=== PATIENT | female | born 1960 ===

== ENCOUNTER 2017-07-03 13:57 | Inpatient (IN) | payer MEDICARE, OTHER ==
[~2017-07-03] VITALS: Ht 157.5 cm; Wt 86.6 kg
[~2017-07-03 13:57] MED LIST: ASPI-496 PO; ASPI325T17 PO; AZIT250T PO; CALC500T93 PO; CEFD300C37 PO; CYCL-259 PO; FOLI-17 PO; GABA300C10 PO; GLIM2TAB2 PO; LISI40TA PO; METF500T3 PO; METH2.5T PO; MULT-516 PO; OMEP20CA9 PO; OXYC5SOL8 PO; PRED20TA PO
[2017-07-03] MEDS ORDERED: PANTOPRAZOLE 80 MG in SODIUM CHLORIDE 0.9% 50 ML IVPB ONE (14:01)
[2017-07-03] MEDS ORDERED: OCTREOTIDE 100MCG/ML, 1ML (0.1MG/ML) ONE (14:20)
[2017-07-03] MEDS ORDERED: SODIUM CHLORIDE FLUSH 10ML SYR IVF ONE (14:30)
[2017-07-03] MEDS ORDERED: PLEASE ENTER HEIGHT AND WEIGHT MC SCH (14:30)
[2017-07-03] MEDS ORDERED: OCTREOTIDE 100MCG/ML, 1ML (0.1MG/ML) IV ONE (14:30)
[2017-07-03] MEDS ORDERED: SODIUM CHLORIDE 0.9% 1,000ML IVBOLUS ONE ×3 (14:30→18:30)
[2017-07-03] MEDS ORDERED: CEFTRIAXONE PMX 1GM/50ML 50 ML IVPB ONE (14:30)
[2017-07-03] MEDS ORDERED: CEFTRIAXONE PMX 1GM/50ML 50 ML ONE (14:31)
[2017-07-03] MEDS ORDERED: ONDANSETRON 2MG/ML, 2ML ONE (14:31)
[2017-07-03] MEDS: OCTREOTIDE 500 MCG in SODIUM CHLORIDE 0.9% 249 ML IV PRN ×4 (14:43→19:01)
[2017-07-03 14:58] LABS: MEAN CORPUSCULAR HEMOGLOBIN 25.5 pg (27.0-34.8); MEAN CORPUSCULAR HGB CONC 31.7 g/dL (32.4-35.8); MEAN CORPUSCULAR VOLUME 80.4 fL (80-100); MEAN PLATELET VOLUME 9.6 fL (7.4-10.4); PLATELET COUNT 236 x10^3/uL (130-400); RED BLOOD COUNT 4.13 x10^6/uL (3.82-5.3); RED CELL DISTRIBUTION WIDTH 22.6 % (9.6-15.2)
[2017-07-03] MEDS ORDERED: ONDANSETRON 2MG/ML, 2ML IVPush ONE (15:00)
[2017-07-03 15:07] LABS: ALANINE AMINOTRANSFERASE 23 U/L (12-78); ALBUMIN 2.2 g/dL (3.4-5.0); ANION GAP 12 mmol/L (5-15); CALCIUM 7.7 mg/dL (8.5-10.1); CHLORIDE 115 mmol/L (98-107); CREATININE 0.69 mg/dL (0.55-1.02)
[2017-07-03 15:10] LABS: ALKALINE PHOSPHATASE 194 U/L (45-117); TOTAL PROTEIN 7.8 g/dL (6.4-8.2)
[2017-07-03] MEDS: PANTOPRAZOLE 80 MG in SODIUM CHLORIDE 0.9% 100 ML IV SCH ×5 (15:12→22:28)
[2017-07-03 15:24] LABS: BASOPHILS # (AUTO) 0.06 x10^3/uL (0-0.1); BASOPHILS % (AUTO) 1 % (0-1); EOSINOPHILS % (AUTO) 0 % (1-7); LYMPHOCYTES # (AUTO) 2.34 x10^3/uL (1-3.4); LYMPHOCYTES % (AUTO) 18 % (22-44); MONOCYTES # (AUTO) 0.97 x10^3/uL (0.2-0.8); MONOCYTES % (AUTO) 8 % (2-9); NEUTROPHILS # (AUTO) 9.38 x10^3/uL (1.8-6.8); NEUTROPHILS % (AUTO) 74 % (42-75)
[2017-07-03 15:25] LABS: MD MORPH REVIEW ONLY
[2017-07-03 15:26] LABS: INTERNATIONAL NORMALIZED RATIO 1.33 (0.93-1.1); PROTHROMBIN TIME 13.6 Seconds (9.6-11.5)
[2017-07-03 15:32] LABS: ANISOCYTOSIS 2+
[2017-07-03 15:33] LABS: MICROCYTOSIS 1+
[2017-07-03 15:34] LABS: POLYCHROMASIA 1+
[2017-07-03 15:35] LABS: <PLATELET ESTIMATE> ADEQUATE; <PLT MORPHOLOGY> NORMAL PLT MORPH
[2017-07-03 15:53] LABS: MICROSCOPIC NOT IND
[2017-07-03 15:58] LABS: CULTURE INDICATED? NO
[2017-07-03 16:08] LABS: ACETONE, SERUM Negative (Negative)
[2017-07-03] MEDS ORDERED: LORazepam 2 MG/ML, 1ML ONE (16:28)
[2017-07-03] MEDS ORDERED: LORazepam 2 MG/ML, 1ML IVPush ONE (16:30)
[2017-07-03] MEDS ORDERED: SODIUM CHLORIDE 0.9%, 500ML IVBOLUS ONE (16:30)
[2017-07-03 16:55] LABS: AMPHETAMINE SCREEN, URINE Negative (Negative); BARBITURATE SCREEN, URINE Negative (Negative); BENZODIAZEPINE SCREEN, URINE Negative (Negative); CANNABINOID SCREEN, URINE Positive (Negative); COCAINE SCREEN, URINE Negative (Negative); METHADONE SCREEN, URINE Negative (Negative); OPIATE SCREEN, URINE Negative (Negative)
[2017-07-03] MEDS ORDERED: ZIPRASIDONE 20 MG INJ IM ONE ×3 (17:23→18:30)
[2017-07-03] MEDS ORDERED: POLYETHYLENE GLYCOL 17 GM PACKET PO PRN (17:30)
[2017-07-03] MEDS ORDERED: ONDANSETRON 2MG/ML, 2ML IVPush PRN (17:30)
[2017-07-03] MEDS: SODIUM CHLORIDE 0.9% 1,000 ML IV SCH (19:19)
[2017-07-03 20:00] LABS: THYROID STIMULATING HORMONE 0.304 mIU/L (0.358-3.740)
[2017-07-03 20:39] VITALS: BP 188/86
[2017-07-03] MEDS ORDERED: LACTULOSE 20 GM/30 ML UDC PO SCH (21:00)
[2017-07-03] MEDS: HALOPERIDOL 5 MG/ML IV PRN (22:28)
[2017-07-04] MEDS: HALOPERIDOL 5 MG/ML IV PRN ×2 (00:46→04:10)
[2017-07-04] MEDS: OCTREOTIDE 500 MCG in SODIUM CHLORIDE 0.9% 249 ML IV SCH ×3 (00:46→23:21)
[2017-07-04 04:00] VITALS: BP 151/74
[2017-07-04 04:42] LABS: ALBUMIN 1.7 g/dL (3.4-5.0); ANION GAP 10 mmol/L (5-15); CALCIUM 6.9 mg/dL (8.5-10.1); CHLORIDE 123 mmol/L (98-107)
[2017-07-04 04:46] LABS: ALANINE AMINOTRANSFERASE 21 U/L (12-78); ALKALINE PHOSPHATASE 145 U/L (45-117); BILIRUBIN,TOTAL 0.9 mg/dL (0.2-1.0); CREATININE 0.45 mg/dL (0.55-1.02); TOTAL PROTEIN 5.9 g/dL (6.4-8.2)
[2017-07-04 04:49] LABS: MEAN CORPUSCULAR HEMOGLOBIN 26.1 pg (27.0-34.8); MEAN CORPUSCULAR HGB CONC 32.3 g/dL (32.4-35.8); MEAN CORPUSCULAR VOLUME 80.9 fL (80-100); MEAN PLATELET VOLUME 9.3 fL (7.4-10.4); PLATELET COUNT 154 x10^3/uL (130-400); RED BLOOD COUNT 2.88 x10^6/uL (3.82-5.3); RED CELL DISTRIBUTION WIDTH 22.6 % (9.6-15.2)
[2017-07-04] MEDS: SODIUM CHLORIDE 0.9% 1,000 ML IV SCH (05:02)
[2017-07-04 05:53] LABS: BASOPHILS # (AUTO) 0.05 x10^3/uL (0-0.1); BASOPHILS % (AUTO) 1 % (0-1); EOSINOPHILS # (AUTO) 0.02 x10^3/uL (0-0.4); EOSINOPHILS % (AUTO) 0 % (1-7); LYMPHOCYTES # (AUTO) 1.81 x10^3/uL (1-3.4); LYMPHOCYTES % (AUTO) 21 % (22-44); MD SCAN; MONOCYTES # (AUTO) 0.71 x10^3/uL (0.2-0.8); MONOCYTES % (AUTO) 8 % (2-9); NEUTROPHILS # (AUTO) 6.05 x10^3/uL (1.8-6.8); NEUTROPHILS % (AUTO) 70 % (42-75)
[2017-07-04] MEDS: SENNA/DOCUSATE TABLET PO SCH (09:00)
[2017-07-04] MEDS ORDERED: LACTULOSE 3.3 GM/5 ML ORAL.SOL RC PRN (09:30)
[2017-07-04] MEDS: PANTOPRAZOLE 80 MG in SODIUM CHLORIDE 0.9% 100 ML IV SCH ×2 (09:47→22:06)
[2017-07-04] MEDS ORDERED: PROPOFOL 10 MG/ML, 50ML ONE (10:38)
[2017-07-04] MEDS ORDERED: MIDAZOLAM 1 MG/ML, 2ML ONE (10:38)
[2017-07-04] MEDS ORDERED: KETAMINE 10 MG/ML, 20ML ONE (10:38)
[2017-07-04] MEDS ORDERED: FENTANYL PF 100 MCG/2ML ONE (10:39)
[2017-07-04] MEDS ORDERED: FENTANYL PF 100 MCG/2ML IV PRN (11:30)
[2017-07-04] MEDS ORDERED: ACETAMINOPHEN 325 MG TABLET PO PRN (11:30)
[2017-07-04] MEDS ORDERED: hydrALAzine 20 MG/ML, 1ML IV PRN (11:30)
[2017-07-04] MEDS ORDERED: PROMETHAZINE 12.5 MG SUPP PR PRN (11:30)
[2017-07-04] MEDS ORDERED: HYDROmorphone 1 MG/ML, 1ML IV PRN (11:30)
[2017-07-04] MEDS ORDERED: MEPERIDINE/PF 25MG/0.5ML IVPush PRN (11:30)
[2017-07-04] MEDS ORDERED: LABETALOL 5MG/ML, 20ML IV PRN (11:30)
[2017-07-04] MEDS ORDERED: ONDANSETRON 2MG/ML, 2ML IVPush PRN (11:30)
[2017-07-04] MEDS ORDERED: MIDAZOLAM 1 MG/ML, 2ML IV PRN (11:30)
[2017-07-04] MEDS ORDERED: LACTULOSE 20 GM/30 ML UDC PO ONE (12:30)
[2017-07-04 12:58] LABS: ANION GAP 6 mmol/L (5-15); CHLORIDE 122 mmol/L (98-107); CREATININE 0.42 mg/dL (0.55-1.02)
[2017-07-04] MEDS: DEXTROSE 5% 1,000 ML IV SCH (13:56)
[2017-07-04] MEDS: CEFTRIAXONE PMX 1GM/50ML 50 ML IV SCH (15:42)
[2017-07-04] MEDS: LACTULOSE 20 GM/30 ML UDC PO SCH ×3 (16:03→21:39)
[2017-07-04] MEDS: THIAMINE 100MG TABLET PO SCH (16:03)
[2017-07-04] MEDS: RIFAXIMIN 550 MG TABLET PO SCH (21:00)
[2017-07-05] VITALS (11 sets, daily range): BP systolic 129–159; BP diastolic 59–85
[2017-07-05] MEDS: DEXTROSE 5% 1,000 ML IV SCH (04:32)
[2017-07-05 04:41] LABS: ALANINE AMINOTRANSFERASE 30 U/L (12-78); ALBUMIN 1.8 g/dL (3.4-5.0); ANION GAP 6 mmol/L (5-15); CHLORIDE 121 mmol/L (98-107); CREATININE 0.38 mg/dL (0.55-1.02)
[2017-07-05 04:43] LABS: ALKALINE PHOSPHATASE 146 U/L (45-117); BILIRUBIN,TOTAL 1.2 mg/dL (0.2-1.0); TOTAL PROTEIN 5.8 g/dL (6.4-8.2)
[2017-07-05 04:47] LABS: MEAN CORPUSCULAR HEMOGLOBIN 26.5 pg (27.0-34.8); MEAN CORPUSCULAR HGB CONC 32.2 g/dL (32.4-35.8); MEAN CORPUSCULAR VOLUME 82.3 fL (80-100); PLATELET COUNT 155 x10^3/uL (130-400); RED BLOOD COUNT 2.57 x10^6/uL (3.82-5.3); RED CELL DISTRIBUTION WIDTH 23.1 % (9.6-15.2)
[2017-07-05 05:45] LABS: BASOPHILS # (AUTO) 0.08 x10^3/uL (0-0.1); BASOPHILS % (AUTO) 1 % (0-1); EOSINOPHILS # (AUTO) 0.09 x10^3/uL (0-0.4); EOSINOPHILS % (AUTO) 1 % (1-7); LYMPHOCYTES # (AUTO) 1.75 x10^3/uL (1-3.4); LYMPHOCYTES % (AUTO) 19 % (22-44); MD SCAN; MONOCYTES # (AUTO) 0.91 x10^3/uL (0.2-0.8); MONOCYTES % (AUTO) 10 % (2-9); NEUTROPHILS # (AUTO) 6.38 x10^3/uL (1.8-6.8); NEUTROPHILS % (AUTO) 69 % (42-75)
[2017-07-05] MEDS: LACTULOSE 20 GM/30 ML UDC PO SCH ×2 (08:16→20:13)
[2017-07-05] MEDS: THIAMINE 100MG TABLET PO SCH (08:17)
[2017-07-05] MEDS: SENNA/DOCUSATE TABLET PO SCH (08:17)
[2017-07-05] MEDS: RIFAXIMIN 550 MG TABLET PO SCH ×2 (08:17→20:13)
[2017-07-05] MEDS: PANTOPRAZOLE 80 MG in SODIUM CHLORIDE 0.9% 100 ML IV SCH ×2 (09:52→20:14)
[2017-07-05] MEDS: OCTREOTIDE 500 MCG in SODIUM CHLORIDE 0.9% 249 ML IV SCH ×2 (09:52→20:14)
[2017-07-05] MEDS ORDERED: POTASSIUM CHLORIDE 20 MEQ TAB.ER.PRT PO ONE (11:00)
[2017-07-05] MEDS: CEFTRIAXONE PMX 1GM/50ML 50 ML IV SCH (15:24)
[2017-07-06 02:41] VITALS: BP 138/77
[2017-07-06 05:26] LABS: ALBUMIN 1.7 g/dL (3.4-5.0); ANION GAP 7 mmol/L (5-15); CALCIUM 6.8 mg/dL (8.5-10.1); CHLORIDE 116 mmol/L (98-107)
[2017-07-06 05:31] LABS: ALANINE AMINOTRANSFERASE 36 U/L (12-78); ALKALINE PHOSPHATASE 154 U/L (45-117); CREATININE 0.26 mg/dL (0.55-1.02); TOTAL PROTEIN 5.4 g/dL (6.4-8.2)
[2017-07-06 05:50] LABS: MEAN CORPUSCULAR HEMOGLOBIN 27.4 pg (27.0-34.8); MEAN CORPUSCULAR HGB CONC 32.9 g/dL (32.4-35.8); MEAN CORPUSCULAR VOLUME 83.3 fL (80-100); MEAN PLATELET VOLUME 8.8 fL (7.4-10.4); PLATELET COUNT 111 x10^3/uL (130-400); RED BLOOD COUNT 2.85 x10^6/uL (3.82-5.3); RED CELL DISTRIBUTION WIDTH 21.2 % (9.6-15.2)
[2017-07-06] MEDS: PANTOPRAZOLE 80 MG in SODIUM CHLORIDE 0.9% 100 ML IV SCH (05:58)
[2017-07-06] MEDS: OCTREOTIDE 500 MCG in SODIUM CHLORIDE 0.9% 249 ML IV SCH ×2 (05:59→16:31)
[2017-07-06 06:28] LABS: BASOPHILS # (AUTO) 0.03 x10^3/uL (0-0.1); BASOPHILS % (AUTO) 0 % (0-1); EOSINOPHILS # (AUTO) 0.15 x10^3/uL (0-0.4); EOSINOPHILS % (AUTO) 2 % (1-7); LYMPHOCYTES % (AUTO) 16 % (22-44); MD SCAN; MONOCYTES # (AUTO) 0.46 x10^3/uL (0.2-0.8); MONOCYTES % (AUTO) 7 % (2-9); NEUTROPHILS # (AUTO) 4.56 x10^3/uL (1.8-6.8); NEUTROPHILS % (AUTO) 74 % (42-75)
[2017-07-06 08:20] VITALS: BP 118/66
[2017-07-06] MEDS: LACTULOSE 20 GM/30 ML UDC PO SCH ×2 (08:51→20:35)
[2017-07-06] MEDS: THIAMINE 100MG TABLET PO SCH (08:51)
[2017-07-06] MEDS: RIFAXIMIN 550 MG TABLET PO SCH ×2 (08:51→20:35)
[2017-07-06] MEDS: SENNA/DOCUSATE TABLET PO SCH (09:00)
[2017-07-06] MEDS ORDERED: POTASSIUM CHLORIDE 20 MEQ TAB.ER.PRT PO ONE (11:30)
[2017-07-06] MEDS ORDERED: PANTOPRAZOLE 40 MG IV IVPush SCH (12:00)
[2017-07-06 13:15] VITALS: BP 121/55
[2017-07-06] MEDS: CEFTRIAXONE PMX 1GM/50ML 50 ML IV SCH (14:49)
[2017-07-06 19:45] VITALS: BP 136/64
[2017-07-06] MEDS: PANTOPROZOLE 40MG TABLET PO SCH (20:35)
[2017-07-07] MEDS: OCTREOTIDE 500 MCG in SODIUM CHLORIDE 0.9% 249 ML IV SCH (01:03)
[2017-07-07 01:30] VITALS: BP 126/55
[2017-07-07 05:25] LABS: ANION GAP 6 mmol/L (5-15); CALCIUM 6.9 mg/dL (8.5-10.1); CHLORIDE 116 mmol/L (98-107); CREATININE 0.31 mg/dL (0.55-1.02)
[2017-07-07 05:38] LABS: BASOPHILS # (AUTO) 0.03 x10^3/uL (0-0.1); BASOPHILS % (AUTO) 1 % (0-1); EOSINOPHILS # (AUTO) 0.18 x10^3/uL (0-0.4); EOSINOPHILS % (AUTO) 3 % (1-7); LYMPHOCYTES # (AUTO) 1.27 x10^3/uL (1-3.4); LYMPHOCYTES % (AUTO) 23 % (22-44); MD NO; MEAN CORPUSCULAR HGB CONC 32.5 g/dL (32.4-35.8); MEAN CORPUSCULAR VOLUME 83.2 fL (80-100); MONOCYTES % (AUTO) 9 % (2-9); NEUTROPHILS # (AUTO) 3.46 x10^3/uL (1.8-6.8); NEUTROPHILS % (AUTO) 64 % (42-75); PLATELET COUNT 107 x10^3/uL (130-400)
[2017-07-07 06:47] VITALS: BP 144/73
[2017-07-07] MEDS: THIAMINE 100MG TABLET PO SCH (07:55)
[2017-07-07] MEDS: LACTULOSE 20 GM/30 ML UDC PO SCH ×2 (07:55→20:56)
[2017-07-07] MEDS: PANTOPROZOLE 40MG TABLET PO SCH ×2 (07:55→20:56)
[2017-07-07] MEDS: RIFAXIMIN 550 MG TABLET PO SCH ×2 (07:55→20:56)
[2017-07-07] MEDS: SENNA/DOCUSATE TABLET PO SCH (07:56)
[2017-07-07 13:11] VITALS: BP 116/78
[2017-07-07] MEDS: CEFTRIAXONE PMX 1GM/50ML 50 ML IV SCH (14:50)
[2017-07-07 20:30] VITALS: BP 119/67
[2017-07-08 01:20] VITALS: BP 123/71
[2017-07-08 05:29] LABS: BASOPHILS # (AUTO) 0.03 x10^3/uL (0-0.1); BASOPHILS % (AUTO) 1 % (0-1); EOSINOPHILS # (AUTO) 0.19 x10^3/uL (0-0.4); EOSINOPHILS % (AUTO) 4 % (1-7); LYMPHOCYTES # (AUTO) 1.22 x10^3/uL (1-3.4); LYMPHOCYTES % (AUTO) 24 % (22-44); MD NO; MEAN CORPUSCULAR HEMOGLOBIN 26.9 pg (27.0-34.8); MEAN CORPUSCULAR HGB CONC 32.7 g/dL (32.4-35.8); MEAN CORPUSCULAR VOLUME 82.3 fL (80-100); MEAN PLATELET VOLUME 8.9 fL (7.4-10.4); MONOCYTES # (AUTO) 0.58 x10^3/uL (0.2-0.8); MONOCYTES % (AUTO) 11 % (2-9); NEUTROPHILS # (AUTO) 3.11 x10^3/uL (1.8-6.8); NEUTROPHILS % (AUTO) 61 % (42-75); PLATELET COUNT 107 x10^3/uL (130-400); RED BLOOD COUNT 2.88 x10^6/uL (3.82-5.3); RED CELL DISTRIBUTION WIDTH 21.6 % (9.6-15.2)
[2017-07-08 05:40] LABS: CHLORIDE 114 mmol/L (98-107)
[2017-07-08 05:47] LABS: ANION GAP 6 mmol/L (5-15); CALCIUM 6.9 mg/dL (8.5-10.1); CREATININE 0.29 mg/dL (0.55-1.02)
[2017-07-08 07:44] VITALS: BP 130/78
[2017-07-08] MEDS: SENNA/DOCUSATE TABLET PO SCH (09:00)
[2017-07-08] MEDS: LACTULOSE 20 GM/30 ML UDC PO SCH ×2 (09:11→20:17)
[2017-07-08] MEDS: PANTOPROZOLE 40MG TABLET PO SCH ×2 (09:11→20:17)
[2017-07-08] MEDS: THIAMINE 100MG TABLET PO SCH (09:11)
[2017-07-08] MEDS: RIFAXIMIN 550 MG TABLET PO SCH ×2 (09:11→20:17)
[2017-07-08 14:01] VITALS: BP 124/78
[2017-07-08] MEDS: CEFTRIAXONE PMX 1GM/50ML 50 ML IV SCH (14:39)
[2017-07-08 20:14] VITALS: BP 144/73
[2017-07-09 03:23] VITALS: BP 110/67
[2017-07-09 05:40] LABS: BASOPHILS # (AUTO) 0.03 x10^3/uL (0-0.1); BASOPHILS % (AUTO) 1 % (0-1); EOSINOPHILS % (AUTO) 4 % (1-7); LYMPHOCYTES # (AUTO) 1.38 x10^3/uL (1-3.4); LYMPHOCYTES % (AUTO) 24 % (22-44); MD NO; MEAN CORPUSCULAR HGB CONC 32.9 g/dL (32.4-35.8); MEAN CORPUSCULAR VOLUME 82.1 fL (80-100); MEAN PLATELET VOLUME 9.1 fL (7.4-10.4); MONOCYTES # (AUTO) 0.69 x10^3/uL (0.2-0.8); MONOCYTES % (AUTO) 12 % (2-9); NEUTROPHILS # (AUTO) 3.37 x10^3/uL (1.8-6.8); NEUTROPHILS % (AUTO) 60 % (42-75); PLATELET COUNT 114 x10^3/uL (130-400); RED BLOOD COUNT 2.95 x10^6/uL (3.82-5.3); RED CELL DISTRIBUTION WIDTH 20.9 % (9.6-15.2)
[2017-07-09 05:56] LABS: CHLORIDE 113 mmol/L (98-107)
[2017-07-09 06:02] LABS: ANION GAP 10 mmol/L (5-15); CALCIUM 7.2 mg/dL (8.5-10.1); CREATININE 0.33 mg/dL (0.55-1.02)
[2017-07-09 07:35] VITALS: BP 143/76
[2017-07-09] MEDS: SENNA/DOCUSATE TABLET PO SCH (09:00)
[2017-07-09 10:03] VITALS: BP 121/73
[2017-07-09] MEDS: PANTOPROZOLE 40MG TABLET PO SCH ×2 (10:10→20:09)
[2017-07-09] MEDS: LACTULOSE 20 GM/30 ML UDC PO SCH ×2 (10:10→20:09)
[2017-07-09] MEDS: RIFAXIMIN 550 MG TABLET PO SCH ×2 (10:11→20:09)
[2017-07-09] MEDS: THIAMINE 100MG TABLET PO SCH (10:11)
[2017-07-09] MEDS: OXYcodone IR 5MG TABLET PO PRN ×2 (12:48→12:50)
[2017-07-09 13:44] VITALS: BP 144/80
[2017-07-09] MEDS: CEFTRIAXONE PMX 1GM/50ML 50 ML IV SCH (15:06)
[2017-07-09 19:10] VITALS: BP 121/74
[2017-07-10 02:02] VITALS: BP 111/65
[2017-07-10 07:58] VITALS: BP 152/81
[2017-07-10] MEDS: LACTULOSE 20 GM/30 ML UDC PO SCH (09:24)
[2017-07-10] MEDS: OXYcodone IR 5MG TABLET PO PRN (09:25)
[2017-07-10] MEDS: THIAMINE 100MG TABLET PO SCH (09:26)
[2017-07-10] MEDS: SENNA/DOCUSATE TABLET PO SCH (09:27)
[2017-07-10] MEDS: PANTOPROZOLE 40MG TABLET PO SCH (09:27)
[2017-07-10] MEDS: RIFAXIMIN 550 MG TABLET PO SCH (09:35)
[2017-07-10 13:44] VITALS: BP 144/79
[2017-07-10] MEDS: CEFTRIAXONE PMX 1GM/50ML 50 ML IV SCH (14:27)
[2017-07-10] MEDS ORDERED: RIFA550T4 PO (16:41)
[2017-07-10] MEDS ORDERED: THIA100T6 PO (16:41)
[2017-07-10] MEDS ORDERED: LACT20SO13 PO (16:41)
[2017-07-10] MEDS ORDERED: AMOX1TAB64 PO (16:41)
[2017-07-10 17:49] VITALS: BP 142/76
== END 2017-07-10 18:19 | DRG 368 ==
LOC: ED 14:58 → EDIP 16:07 → CCU 18:50 → 4NOR 07-05 11:21
PROVIDERS: ADMIT Internal Medicine; ATTEND Internal Medicine
PROC: 0T9B70Z Drainage of Bladder with Drainage Device, Via Natural or Artificial Opening (ICD-10-PCS; 2017-07-03)
PROC: 06L38CZ Occlusion of Esophageal Vein with Extraluminal Device, Via Natural or Artificial Opening Endoscopic (ICD-10-PCS; principal; 2017-07-04 08:30)
PROC: 30233N1 Transfusion of Nonautologous Red Blood Cells into Peripheral Vein, Percutaneous Approach (ICD-10-PCS; 2017-07-05)
DX: I85.01 Esophageal varices with bleeding (principal); J96.01 Acute respiratory failure with hypoxia; E43 Unspecified severe protein-calorie malnutrition; E11.42 Type 2 diabetes mellitus with diabetic polyneuropathy; M32.9 Systemic lupus erythematosus, unspecified; K72.90 Hepatic failure, unspecified without coma; E83.42 Hypomagnesemia; D62 Acute posthemorrhagic anemia; K26.4 Chronic or unspecified duodenal ulcer with hemorrhage; K73.9 Chronic hepatitis, unspecified; E66.9 Obesity, unspecified; I10 Essential (primary) hypertension; I86.4 Gastric varices; K74.60 Unspecified cirrhosis of liver; K75.81 Nonalcoholic steatohepatitis (NASH); M19.90 Unspecified osteoarthritis, unspecified site; M81.0 Age-related osteoporosis without current pathological fracture; Z68.34 Body mass index [BMI] 34.0-34.9, adult; Z79.82 Long term (current) use of aspirin; Z82.3 Family history of stroke; Z82.49 Family history of ischemic heart disease and other diseases of the circulatory system; Z83.3 Family history of diabetes mellitus; Z86.73 Personal history of transient ischemic attack (TIA), and cerebral infarction without residual deficits; Z90.49 Acquired absence of other specified parts of digestive tract; Z90.722 Acquired absence of ovaries, bilateral
CPT/HCPCS: 36415; 71045; 76705; 80048; 80053; 80307; 81003; 82010; 82105; 82140; 82533; 82800; 82962; 83605; 83690; 83735; 84100; 84145; 84443; 84630; 85018; 85025; 85610; 86677; 86850; 86900; 86923; 87040; 87081; 93005; 96361; 96372; 96374; 96375; J0696; J2250; J2354; J2405; J2704; J3010; J3486; J7070; C9113; J1630; J2060; J7030; J7040; J7050; P9016

== ENCOUNTER 2018-01-25 19:11 | Emergency (ER) | payer MEDICARE, OTHER ==
[~2018-01-25] VITALS: Ht 154.9 cm; Wt 87.4 kg
[~2018-01-25 19:11] MED LIST changes: +AMOX1TAB64 PO; +LACT20SO13 PO; +RIFA550T4 PO; +THIA100T67 PO
[2018-01-25 19:57] LABS: INTERNATIONAL NORMALIZED RATIO 1.28 (0.93-1.1); PROTHROMBIN TIME 13.2 Seconds (9.6-11.5)
[2018-01-25 19:58] LABS: ALANINE AMINOTRANSFERASE 33 U/L (12-78); ALBUMIN 2.4 g/dL (3.4-5.0); ANION GAP 10 mmol/L (5-15); CALCIUM 8.2 mg/dL (8.5-10.1); CHLORIDE 112 mmol/L (98-107); CREATININE 0.51 mg/dL (0.55-1.02)
[2018-01-25 20:00] LABS: ALKALINE PHOSPHATASE 195 U/L (45-117); BILIRUBIN,TOTAL 2.4 mg/dL (0.2-1.0); TOTAL PROTEIN 7.9 g/dL (6.4-8.2)
[2018-01-25 20:17] LABS: BASOPHILS # (AUTO) 0.02 x10^3/uL (0-0.1); BASOPHILS % (AUTO) 1 % (0-1); EOSINOPHILS # (AUTO) 0.11 x10^3/uL (0-0.4); EOSINOPHILS % (AUTO) 3 % (1-7); LYMPHOCYTES # (AUTO) 1.17 x10^3/uL (1-3.4); LYMPHOCYTES % (AUTO) 25 % (22-44); MD SCAN; MEAN CORPUSCULAR HEMOGLOBIN 35.9 pg (27.0-34.8); MEAN CORPUSCULAR HGB CONC 33.7 g/dL (32.4-35.8); MEAN CORPUSCULAR VOLUME 106.5 fL (80-100); MEAN PLATELET VOLUME 9.3 fL (7.4-10.4); MONOCYTES # (AUTO) 0.37 x10^3/uL (0.2-0.8); MONOCYTES % (AUTO) 8 % (2-9); NEUTROPHILS # (AUTO) 2.96 x10^3/uL (1.8-6.8); NEUTROPHILS % (AUTO) 64 % (42-75); PLATELET COUNT 94 x10^3/uL (130-400); RED BLOOD COUNT 4.58 x10^6/uL (3.82-5.3); RED CELL DISTRIBUTION WIDTH 15.8 % (9.6-15.2)
[2018-01-25 20:30] LABS: MICROSCOPIC AUTO
[2018-01-25 20:33] LABS: CULTURE INDICATED? YES
[2018-01-25 22:39] VITALS: BP 104/57
== END 2018-01-25 22:42 | disposition home or self-care (01) ==
LOC: ED 22:37
DX: I10 Essential (primary) hypertension (principal); E11.9 Type 2 diabetes mellitus without complications; R10.30 Lower abdominal pain, unspecified
CPT/HCPCS: 36415; 76700; 80053; 81001; 85025; 85610; 85730; 87077; 87086; 87186; 99285

== ENCOUNTER 2018-05-22 05:14 | Inpatient (IN) | payer MEDICARE, OTHER ==
[~2018-05-22] VITALS: Ht 160 cm; Wt 91.2 kg
[~2018-05-22 05:14] MED LIST changes: +ETOMIDATE 40 MG/20 ML ONE; +ROCURONIUM 10 MG/ML,10ML ONE
[2018-05-22] MEDS ORDERED: SODIUM CHLORIDE FLUSH 10ML SYR IVF ONE (05:30)
--- NOTE | 2018-05-22 05:30 | NUR ---
Xray at bedside.
[2018-05-22 06:04] LABS: MEAN CORPUSCULAR HEMOGLOBIN 35.1 pg (27.0-34.8); MEAN CORPUSCULAR HGB CONC 33.7 g/dL (32.4-35.8); MEAN PLATELET VOLUME 9.5 fL (7.4-10.4); PLATELET COUNT 145 x10^3/uL (130-400); RED BLOOD COUNT 3.65 x10^6/uL (3.82-5.3); RED CELL DISTRIBUTION WIDTH 16.9 % (9.6-15.2)
[2018-05-22 06:12] LABS: INTERNATIONAL NORMALIZED RATIO 1.6 (0.93-1.1); PROTHROMBIN TIME 16.7 Seconds (9.6-11.5)
[2018-05-22 06:16] LABS: ALANINE AMINOTRANSFERASE 24 U/L (12-78); ALBUMIN 1.7 g/dL (3.4-5.0); ANION GAP 10 mmol/L (5-15); CALCIUM 7.3 mg/dL (8.5-10.1); CHLORIDE 111 mmol/L (98-107); CREATININE 0.73 mg/dL (0.55-1.02)
[2018-05-22 06:20] LABS: ALKALINE PHOSPHATASE 181 U/L (45-117); BILIRUBIN,TOTAL 2.1 mg/dL (0.2-1.0); TOTAL PROTEIN 6.3 g/dL (6.4-8.2); TROPONIN I 0.095 ng/mL (0.000-0.045)
[2018-05-22 06:26] LABS: BASOPHILS # (AUTO) 0.05 x10^3/uL (0-0.1); BASOPHILS % (AUTO) 0 % (0-1); EOSINOPHILS # (AUTO) 0.03 x10^3/uL (0-0.4); EOSINOPHILS % (AUTO) 0 % (1-7); LYMPHOCYTES # (AUTO) 1.61 x10^3/uL (1-3.4); LYMPHOCYTES % (AUTO) 14 % (22-44); MD SCAN; MONOCYTES # (AUTO) 0.88 x10^3/uL (0.2-0.8); MONOCYTES % (AUTO) 8 % (2-9); NEUTROPHILS # (AUTO) 9.02 x10^3/uL (1.8-6.8); NEUTROPHILS % (AUTO) 78 % (42-75)
--- NOTE | 2018-05-22 06:59 | NUR ---
need new iv for CTA
--- NOTE | 2018-05-22 07:02 | NUR ---
received report from Eun. pt laying on gurney awake & comfortable, responds approp to staff, comfort measures provided, NAD, call light within reach.
--- NOTE | 2018-05-22 07:05 | NUR ---
Report to Macey BLISS.
--- NOTE | 2018-05-22 07:19 | NUR ---
Anish qureshi in [facility] - 05/22/18 at 0734 by RM pt to CTA
--- NOTE | 2018-05-22 07:34 | NUR ---
pt to CTA
--- NOTE | 2018-05-22 08:01 | NUR ---
pt continues to lay on gurney awake & comfortable, responds approp to staff, comfort measures provided, NAD, call light within reach.
[2018-05-22] MEDS ORDERED: OMNIPAQUE 350 MG/ML, 100ML BOTTLE ONE (08:23)
--- NOTE | 2018-05-22 08:56 | NUR ---
pt upright on gurney awake & comfortable, responds approp to staff, comfort measures provided, NAD- tolerating O2 weening well, call light within reach.
[2018-05-22 09:30] LABS: O2 FLOW 6 L/min
--- NOTE | 2018-05-22 09:50 | NUR ---
pt remains more upright on rney lethargic & requiring increased suppl O2- ERP aware of pt condition, comfort measures provided, son arrived at BS, call light within reach.
[2018-05-22] MEDS ORDERED: SODIUM CHLORIDE 0.9%, 500ML IVBOLUS ONE (10:00)
--- NOTE | 2018-05-22 10:25 | NUR ---
Pt to be admitted to CCU, room 551-1. Report called to Severiano.
[2018-05-22 11:03] LABS: ACETAMINOPHEN < 2 mcg/mL (10-30); SALICYLATE LEVEL < 1.7 mg/dL (2.8-20.0)
[2018-05-22] MEDS ORDERED: FENTANYL PF 100 MCG/2ML ONE (11:16)
[2018-05-22] MEDS ORDERED: POLYETHYLENE GLYCOL 17 GM PACKET PO PRN (11:30)
[2018-05-22] MEDS ORDERED: BISACODYL 10 MG SUPP PR PRN (11:30)
[2018-05-22] MEDS ORDERED: FENTANYL PF 100 MCG/2ML IVPush ONE (11:40)
[2018-05-22] MEDS ORDERED: ETOMIDATE 20 MG/10 ML IVPush ONE (11:40)
[2018-05-22] MEDS ORDERED: ROCURONIUM 10MG/ML,5ML IVPush ONE (11:40)
[2018-05-22] MEDS ORDERED: SODIUM CHLORIDE 0.9% 1,000ML IVBOLUS ONE ×2 (12:00→15:00)
[2018-05-22] MEDS ORDERED: PHARMACY MAY ADJ FOR RENAL FX MC SCH (12:00)
[2018-05-22] MEDS ORDERED: LIDOCAINE-MPF 1%, 2ML ENDO PRN (12:00)
[2018-05-22] MEDS: ALBUTEROL/IPRATROPIUM 2.5MG/0.5MG, 3 ML INLINE SCH ×3 (12:00→22:13)
[2018-05-22] MEDS ORDERED: THIAMINE 200 MG in SODIUM CHLORIDE 0.9% 50 ML IV STA (12:12)
[2018-05-22] MEDS: PIPERACILLIN/TAZO/PMX 3.375GM 50 ML IV SCH ×2 (12:18→22:00)
[2018-05-22] MEDS ORDERED: PHARMACOKINETIC MONITORING MC PRN (13:00)
[2018-05-22] MEDS ORDERED: VANCOMYCIN PER PHARMACY MC PRN (13:00)
[2018-05-22 13:06] LABS: TROPONIN I 0.602 ng/mL (0.000-0.045)
[2018-05-22 13:15] LABS: MICROSCOPIC INDICATED
[2018-05-22 13:17] LABS: CULTURE INDICATED? NO
[2018-05-22 13:19] LABS: BARBITURATE SCREEN, URINE Negative (Negative); BENZODIAZEPINE SCREEN, URINE Negative (Negative); CANNABINOID SCREEN, URINE Negative (Negative); COCAINE SCREEN, URINE Negative (Negative); METHADONE SCREEN, URINE Negative (Negative); OPIATE SCREEN, URINE Negative (Negative)
[2018-05-22 13:19] LABS: TRIGLYCERIDES 114 mg/dL (50-200)
[2018-05-22 13:20] LABS: AMPHETAMINE SCREEN, URINE Negative (Negative)
[2018-05-22] MEDS: POTASSIUM CHLORIDE 10 MEQ in SODIUM CHLORIDE 0.9% 1,000 ML IV SCH (13:21)
[2018-05-22] MEDS: VANCOMYCIN 1,200 MG in SODIUM CHLORIDE 0.9% 250 ML IV SCH (13:21)
[2018-05-22 13:26] LABS: ACETAMINOPHEN < 2 mcg/mL (10-30)
[2018-05-22] MEDS: methylPREDNISolone SOD SUCC 125 MG/2 ML IVPush SCH ×2 (14:24→22:00)
[2018-05-22] MEDS: PROPOFOL 100 ML IV PRN ×2 (14:24→22:01)
[2018-05-22] MEDS: PANTOPRAZOLE 40 MG IV IVPush SCH (14:24)
[2018-05-22] MEDS ORDERED: LACTULOSE 20 GM/30 ML UDC ONE (16:29)
[2018-05-22] MEDS ORDERED: LACTULOSE 20 GM/30 ML UDC PO SCH (16:30)
[2018-05-22] MEDS ORDERED: ALBUMIN HUMAN 5% 500 ML IV ONE (16:30)
[2018-05-22 17:34] LABS: TROPONIN I 0.986 ng/mL (0.000-0.045)
[2018-05-22] MEDS: RIFAXIMIN 200 MG TABLET PO SCH ×2 (17:50→22:00)
[2018-05-22] MEDS: LACTULOSE 20 GM/30 ML UDC PO SCH (22:00)
[2018-05-22] MEDS: FENTANYL PF 100 MCG/2ML IVPush PRN ×2 (22:32→23:44)
[2018-05-23] MEDS: FENTANYL PF 100 MCG/2ML IVPush PRN (01:05)
[2018-05-23] MEDS: ALBUTEROL/IPRATROPIUM 2.5MG/0.5MG, 3 ML INLINE SCH ×5 (02:00→18:00)
[2018-05-23] MEDS: POTASSIUM CHLORIDE 10 MEQ in SODIUM CHLORIDE 0.9% 1,000 ML IV SCH (02:30)
[2018-05-23] MEDS: VANCOMYCIN 1,200 MG in SODIUM CHLORIDE 0.9% 250 ML IV SCH (02:30)
[2018-05-23] MEDS: PROPOFOL 100 ML IV PRN ×3 (02:57→23:06)
[2018-05-23] MEDS: FENTANYL PF 2,500 MCG in SODIUM CHLORIDE 0.9% 200 ML IV PRN (02:58)
[2018-05-23 04:00] VITALS: BP 138/68
[2018-05-23] MEDS: methylPREDNISolone SOD SUCC 125 MG/2 ML IVPush SCH ×3 (04:08→17:16)
[2018-05-23] MEDS: PIPERACILLIN/TAZO/PMX 3.375GM 50 ML IV SCH ×2 (04:08→10:16)
[2018-05-23] MEDS: LACTULOSE 20 GM/30 ML UDC PO SCH ×3 (04:08→17:16)
[2018-05-23 05:18] LABS: CHLORIDE 118 mmol/L (98-107)
[2018-05-23 05:25] LABS: ALANINE AMINOTRANSFERASE 26 U/L (12-78); ALBUMIN 2.4 g/dL (3.4-5.0); ALKALINE PHOSPHATASE 131 U/L (45-117); ANION GAP 19 mmol/L (5-15); BILIRUBIN,TOTAL 2.6 mg/dL (0.2-1.0); CALCIUM 7.2 mg/dL (8.5-10.1); CREATININE 1.02 mg/dL (0.55-1.02); TOTAL PROTEIN 6.3 g/dL (6.4-8.2)
[2018-05-23 05:31] LABS: MEAN CORPUSCULAR HEMOGLOBIN 35.6 pg (27.0-34.8); MEAN CORPUSCULAR HGB CONC 33.6 g/dL (32.4-35.8); MEAN CORPUSCULAR VOLUME 105.9 fL (80-100); MEAN PLATELET VOLUME 10.2 fL (7.4-10.4); PLATELET COUNT 179 x10^3/uL (130-400); RED BLOOD COUNT 3.01 x10^6/uL (3.82-5.3); RED CELL DISTRIBUTION WIDTH 17.3 % (9.6-15.2)
[2018-05-23 05:49] LABS: MD YES
[2018-05-23 05:51] LABS: BAND#(MANUAL) 0.84 x10^3/uL; BANDS%(MANUAL) 4 % (0-7); LYMPH#(MANUAL) 0.63 x10^3/uL (1-3.4); LYMPHS% (MANUAL) 3 % (22-44); MONOS#(MANUAL) 0.21 x10^3/uL (0.3-2.7); MONOS% (MANUAL) 1 % (2-9); SEG#(MANUAL) 19.23 x10^3/uL (1.8-6.8); SEGS% (MANUAL) 92 % (42-75)
[2018-05-23 05:52] LABS: <PLATELET ESTIMATE> ADEQUATE; <PLT MORPHOLOGY> NORMAL PLT MORPH; ANISOCYTOSIS 1+; POLYCHROMASIA 1+
[2018-05-23] MEDS ORDERED: FILTER 0.22 MICRON IV PRN (08:30)
[2018-05-23] MEDS ORDERED: AMIODARONE 150 MG in DEXTROSE 5% 100 ML IV ONE (08:30)
[2018-05-23] MEDS ORDERED: AMIODARONE 900 MG in DEXTROSE 5% 482 ML IV PRN (08:30)
[2018-05-23] MEDS: SODIUM BICARB 8.4%,50ML SYR. 75 MEQ in SODIUM CHLORIDE 0.45% 1,000 ML IV SCH ×2 (08:40→23:06)
[2018-05-23] MEDS ORDERED: SODIUM BICARBONATE 1 MEQ/ML, 50ML VIAL IVPush SCH (08:59)
[2018-05-23] MEDS ORDERED: SODIUM BICARBONATE 1 MEQ/ML, 50ML VIAL IVPush ONE (09:00)
[2018-05-23] MEDS: RIFAXIMIN 200 MG TABLET PO SCH ×3 (09:00→21:00)
[2018-05-23] MEDS ORDERED: hydrALAzine 20 MG/ML, 1ML ONE (09:02)
[2018-05-23] MEDS: PANTOPRAZOLE 40 MG IV IVPush SCH (09:06)
[2018-05-23 09:14] LABS: ANION GAP 19 mmol/L (5-15); CALCIUM 7.2 mg/dL (8.5-10.1); CHLORIDE 119 mmol/L (98-107); CREATININE 1.04 mg/dL (0.55-1.02)
[2018-05-23] MEDS ORDERED: CALCIUM GLUCONATE 9.2 MEQ in SODIUM CHLORIDE 0.9% 100 ML IV ONE (10:00)
[2018-05-23] MEDS: METOPROLOL 1 MG/ML, 5ML IVPush PRN ×2 (10:16→13:06)
[2018-05-23] MEDS ORDERED: ALBUMIN HUMAN 5% 500 ML IV ONE (10:30)
[2018-05-23] MEDS ORDERED: SODIUM CHLORIDE 0.9% 1,000ML IVBOLUS ONE (10:30)
[2018-05-23] MEDS ORDERED: FLUCONAZOLE 100MG/50ML 100 MG in BAG 1 EACH IV SCH (11:00)
[2018-05-23] MEDS: MEROPENEM 1 GM in SODIUM CHLORIDE 0.9% 100 ML IV SCH (12:11)
[2018-05-23 12:34] LABS: ANION GAP 14 mmol/L (5-15); CALCIUM 7.5 mg/dL (8.5-10.1); CHLORIDE 119 mmol/L (98-107); CREATININE 1.01 mg/dL (0.55-1.02)
[2018-05-23] MEDS ORDERED: LORazepam 2 MG/ML, 1ML ONE (14:09)
[2018-05-23] MEDS ORDERED: LORazepam 2 MG/ML, 1ML IVPush ONE ×2 (14:30→17:00)
[2018-05-23] MEDS ORDERED: LEVETIRACETAM 1,000 MG in SODIUM CHLORIDE 0.9% 100 ML IV ONE (15:00)
[2018-05-23] MEDS: LORazepam 2 MG/ML, 1ML IVPush PRN ×3 (16:12→16:21)
[2018-05-23] MEDS ORDERED: LEVETIRACETAM 500 MG in SODIUM CHLORIDE 0.9% 100 ML IV ONE (16:30)
[2018-05-23 17:03] LABS: ANION GAP 13 mmol/L (5-15); CALCIUM 7.8 mg/dL (8.5-10.1); CHLORIDE 123 mmol/L (98-107)
[2018-05-23] MEDS: LORazepam 20 MG in SODIUM CHLORIDE 0.9% 240 ML IV PRN ×3 (17:07→21:08)
[2018-05-23 17:12] LABS: CREATINE KINASE, TOTAL 211 U/L (26-192)
[2018-05-23] MEDS: VANCOMYCIN 1,600 MG in SODIUM CHLORIDE 0.9% 250 ML IV SCH (17:13)
[2018-05-23] MEDS: ARTIFICIAL TEARS OINT 3.5 GM EACHEYE SCH ×2 (17:15→22:30)
[2018-05-23] MEDS ORDERED: PHENOBARBITAL ETOH DETOX PER PHARMACY MC PRN (18:00)
[2018-05-23] MEDS ORDERED: PHENOBARBITAL SODIUM 520 MG in SODIUM CHLORIDE 0.9% 50 ML IV ONE (18:30)
[2018-05-23] MEDS ORDERED: PHENOBARBITAL SODIUM 260 MG in SODIUM CHLORIDE 0.9% 50 ML IV PRN (19:00)
[2018-05-23] MEDS ORDERED: PHENYTOIN SODIUM IV ONE ×2 (20:00→21:00)
[2018-05-23] MEDS ORDERED: FILTER 0.22 MICRON IV ONE (20:00)
[2018-05-23] MEDS ORDERED: SODIUM CHLORIDE 0.9% IV ONE ×2 (20:00→21:00)
[2018-05-23] MEDS ORDERED: PHENYTOIN SODIUM 1,000 MG in SODIUM CHLORIDE 0.9% 100 ML IV ONE ×2 (20:30→21:15)
[2018-05-23] MEDS: SODIUM CHLORIDE 0.9% IV PRN (23:06)
[2018-05-23] MEDS: LORAZEPAM IV PRN (23:06)
[2018-05-23] MEDS ORDERED: MIDAZOLAM 1 MG/ML, 5ML ONE (23:12)
[2018-05-23] MEDS ORDERED: PHENOBARBITAL SODIUM IV PRN (23:30)
[2018-05-23] MEDS ORDERED: SODIUM CHLORIDE 0.9% IV PRN (23:30)
[2018-05-23] MEDS ORDERED: MIDAZOLAM 1 MG/ML, 5ML IVPush ONE (23:30)
[2018-05-24 01:04] LABS: ANION GAP 12 mmol/L (5-15); CALCIUM 6.6 mg/dL (8.5-10.1); CHLORIDE 125 mmol/L (98-107)
[2018-05-24 01:15] LABS: CREATINE KINASE, TOTAL 513 U/L (26-192)
[2018-05-24] MEDS: MEROPENEM 1 GM in SODIUM CHLORIDE 0.9% 100 ML IV SCH (01:36)
[2018-05-24] MEDS: methylPREDNISolone SOD SUCC 125 MG/2 ML IVPush SCH ×2 (01:37→03:49)
[2018-05-24] MEDS: LACTULOSE 20 GM/30 ML UDC PO SCH (01:37)
[2018-05-24] MEDS: SODIUM CHLORIDE 0.9% IV PRN ×2 (01:37→04:47)
[2018-05-24] MEDS: LORAZEPAM IV PRN ×2 (01:37→04:47)
[2018-05-24] MEDS: PROPOFOL 100 ML IV PRN ×3 (01:45→05:10)
[2018-05-24] MEDS: VANCOMYCIN 1,600 MG in SODIUM CHLORIDE 0.9% 250 ML IV SCH (02:13)
[2018-05-24] MEDS ORDERED: LEVETIRACETAM 1,000 MG in SODIUM CHLORIDE 0.9% 100 ML IV SCH (03:00)
[2018-05-24] MEDS: ARTIFICIAL TEARS OINT 3.5 GM EACHEYE SCH (03:49)
[2018-05-24 04:00] VITALS: BP 130/61
[2018-05-24] MEDS: FENTANYL PF 2,500 MCG in SODIUM CHLORIDE 0.9% 200 ML IV PRN (04:14)
[2018-05-24 04:52] LABS: ANION GAP 10 mmol/L (5-15); CALCIUM 6.1 mg/dL (8.5-10.1); CHLORIDE 124 mmol/L (98-107)
[2018-05-24 05:16] LABS: ALANINE AMINOTRANSFERASE 56 U/L (12-78)
[2018-05-24 05:17] LABS: ALKALINE PHOSPHATASE 86 U/L (45-117); BILIRUBIN,TOTAL 2.5 mg/dL (0.2-1.0); CREATININE 0.82 mg/dL (0.55-1.02); TOTAL PROTEIN 4.9 g/dL (6.4-8.2)
[2018-05-24] MEDS ORDERED: FENTANYL PF 2,500 MCG in SODIUM CHLORIDE 0.9% 200 ML IV PRN (06:30)
[2018-05-24 07:09] LABS: MEAN CORPUSCULAR HEMOGLOBIN 39.4 pg (27.0-34.8); MEAN CORPUSCULAR HGB CONC 36.3 g/dL (32.4-35.8); MEAN CORPUSCULAR VOLUME 108.6 fL (80-100); MEAN PLATELET VOLUME 10.1 fL (7.4-10.4); PLATELET COUNT 92 x10^3/uL (130-400); RED BLOOD COUNT 2.32 x10^6/uL (3.82-5.3); RED CELL DISTRIBUTION WIDTH 18.4 % (9.6-15.2)
[2018-05-24 07:12] LABS: MD YES
[2018-05-24] MEDS ORDERED: SODIUM CHLORIDE 0.9% IV PRN (07:21)
[2018-05-24] MEDS ORDERED: LORAZEPAM IV PRN (07:21)
[2018-05-24 07:55] LABS: ANISOCYTOSIS 1+; BAND#(MANUAL) 1.28 x10^3/uL; BANDS%(MANUAL) 7 % (0-7); LYMPH#(MANUAL) 2.93 x10^3/uL (1-3.4); LYMPHS% (MANUAL) 16 % (22-44); MONOS#(MANUAL) 0.37 x10^3/uL (0.3-2.7); MONOS% (MANUAL) 2 % (2-9); POLYCHROMASIA 1+; SEG#(MANUAL) 13.73 x10^3/uL (1.8-6.8); SEGS% (MANUAL) 75 % (42-75)
[2018-05-24 07:56] LABS: <PLATELET ESTIMATE> DECREASED; <PLT MORPHOLOGY> NORMAL PLT MORPH; ROULEAUX 2+; SMUDGE CELLS 1+
[2018-05-24] MEDS ORDERED: PHENOBARBITAL SODIUM 260 MG in SODIUM CHLORIDE 0.9% 50 ML IV SCH (11:00)
== END 2018-05-24 07:19 | disposition expired | DRG 871 ==
LOC: ED 06:00 → EDIP 08:22 → CCU 10:54
PROVIDERS: ADMIT Internal Medicine; ATTEND Internal Medicine
PROC: 5A1935Z Respiratory Ventilation, Less than 24 Consecutive Hours (ICD-10-PCS; principal; 2018-05-23)
PROC: 0BH17EZ Insertion of Endotracheal Airway into Trachea, Via Natural or Artificial Opening (ICD-10-PCS; 2018-05-23)
DX: A41.9 Sepsis, unspecified organism (principal); G92 Toxic encephalopathy; J96.01 Acute respiratory failure with hypoxia; E43 Unspecified severe protein-calorie malnutrition; J69.0 Pneumonitis due to inhalation of food and vomit; K76.6 Portal hypertension; E87.4 Mixed disorder of acid-base balance; D68.9 Coagulation defect, unspecified; E87.0 Hyperosmolality and hypernatremia; J98.11 Atelectasis; Z99.11 Dependence on respirator [ventilator] status; K74.60 Unspecified cirrhosis of liver; D50.9 Iron deficiency anemia, unspecified; D75.89 Other specified diseases of blood and blood-forming organs; E09.65 Drug or chemical induced diabetes mellitus with hyperglycemia; E87.5 Hyperkalemia; F10.21 Alcohol dependence, in remission; I10 Essential (primary) hypertension; I35.8 Other nonrheumatic aortic valve disorders; I72.2 Aneurysm of renal artery; K70.40 Alcoholic hepatic failure without coma; K75.81 Nonalcoholic steatohepatitis (NASH); M06.9 Rheumatoid arthritis, unspecified; M32.9 Systemic lupus erythematosus, unspecified; M81.0 Age-related osteoporosis without current pathological fracture; R56.9 Unspecified convulsions; T38.0X5A Adverse effect of glucocorticoids and synthetic analogues, initial encounter; Z51.5 Encounter for palliative care; Z82.49 Family history of ischemic heart disease and other diseases of the circulatory system; Z83.3 Family history of diabetes mellitus; Z86.73 Personal history of transient ischemic attack (TIA), and cerebral infarction without residual deficits; Z87.891 Personal history of nicotine dependence; Z90.710 Acquired absence of both cervix and uterus; Z90.49 Acquired absence of other specified parts of digestive tract; Z68.35 Body mass index [BMI] 35.0-35.9, adult
CPT/HCPCS: 36415; 36600; 70450; 71045; 71275; 74176; 80048; 80053; 80307; 80329; 81001; 82140; 82533; 82550; 82803; 83605; 83735; 83880; 84100; 84145; 84478; 84484; 85014; 85018; 85025; 85610; 87040; 87070; 87077; 87081; 87186; 87205; 93005; 93306; 94002; 94003; 94640; 95816; 99291; G0378; J0610; J1165; J1953; J2060; J2185; J2250; J2543; J2560; J2704; J3010; J3370; J3411; J3480; J7620; P9045; Q9967; C9113; G0480; J1450; J2930; J7030; J7040; J7050

== ENCOUNTER 2018-05-24 07:21 | Inpatient (IN) | payer OTHER ==
[~2018-05-24] VITALS: Ht 160 cm; Wt 88.5 kg
[~2018-05-24 07:21] MED LIST changes: -ETOMIDATE 40 MG/20 ML ONE; -ROCURONIUM 10 MG/ML,10ML ONE
[2018-05-24] MEDS ORDERED: PROPOFOL 100 ML IV ONE (07:26)
[2018-05-24] MEDS ORDERED: MIDAZOLAM HCL 100 MG in SODIUM CHLORIDE 0.9% 230 ML IV PRN (08:00)
[2018-05-24] MEDS ORDERED: ATROPINE OPHTH SOLN 1%, 5ML BC PRN (08:00)
[2018-05-24] MEDS ORDERED: DEXTROSE 5% IV PRN (08:00)
[2018-05-24] MEDS ORDERED: PHENOBARBITAL ETOH DETOX PER PHARMACY MC PRN (08:00)
[2018-05-24] MEDS ORDERED: SODIUM CHLORIDE 0.9% IV PRN ×3 (08:00→11:00)
[2018-05-24] MEDS ORDERED: LORAZEPAM IV PRN (08:00)
[2018-05-24] MEDS ORDERED: PLEASE ENTER HEIGHT AND WEIGHT MC SCH (08:00)
[2018-05-24] MEDS ORDERED: MORPHINE SULFATE 4 MG/ML, 1ML IVPush PRN ×3 (08:00)
[2018-05-24] MEDS ORDERED: PHENOBARBITAL SODIUM IV PRN ×3 (08:00→11:00)
[2018-05-24] MEDS ORDERED: MIDAZOLAM 1 MG/ML, 5ML ONE (08:11)
[2018-05-24] MEDS ORDERED: LORazepam 2 MG/ML, 1ML ONE (08:12)
[2018-05-24] MEDS ORDERED: PHARMACY INSTRUCTION MC PRN ×3 (08:30→11:30)
[2018-05-24] MEDS ORDERED: RIFAXIMIN 550 MG TABLET PO SCH (09:00)
[2018-05-24] MEDS ORDERED: SCOPOLAMINE PATCH, 1.5MG PATCH.TD72 TD SCH (09:00)
[2018-05-24] MEDS ORDERED: SODIUM CHLORIDE 0.9% 1,000 ML IV SCH (09:00)
[2018-05-24] MEDS ORDERED: MIDAZOLAM 10MG/2 ML IV PRN (09:00)
[2018-05-24] MEDS ORDERED: PHENOBARBITAL SODIUM 130 MG/ML, 1ML IV SCH ×2 (09:00→21:00)
[2018-05-24] MEDS: PHENYTOIN SODIUM 50 MG/ML, 2ML IVPush SCH ×2 (09:23→16:53)
[2018-05-24] MEDS ORDERED: MIDAZOLAM 1 MG/ML, 5ML IVPush PRN (09:30)
[2018-05-24] MEDS ORDERED: PHENOBARBITAL SODIUM 65 MG/ML, 1ML ONE (09:30)
[2018-05-24] MEDS ORDERED: LEVETIRACETAM 1,500 MG in SODIUM CHLORIDE 0.9% 100 ML IV SCH (09:30)
[2018-05-24] MEDS ORDERED: LORazepam 2 MG/ML, 1ML IV PRN (09:30)
[2018-05-24] MEDS: PROPOFOL 100 ML IV PRN ×2 (09:37→10:09)
[2018-05-24] MEDS ORDERED: VECURONIUM 10 MG ONE (10:04)
[2018-05-24] MEDS ORDERED: VECURONIUM 10 MG IVPush ONE (10:30)
[2018-05-24] MEDS ORDERED: HALOPERIDOL 5 MG/ML IV PRN (11:30)
[2018-05-24] MEDS: LACTULOSE 20 GM/30 ML UDC PO SCH ×2 (12:04→16:53)
== END 2018-05-25 03:59 | disposition expired | DRG 871 ==
LOC: CCU 07:22
PROVIDERS: ADMIT Internal Medicine; ATTEND Internal Medicine
PROC: 5A1935Z Respiratory Ventilation, Less than 24 Consecutive Hours (ICD-10-PCS; principal; 2018-05-24)
DX: A41.9 Sepsis, unspecified organism (principal); J96.00 Acute respiratory failure, unspecified whether with hypoxia or hypercapnia; K72.00 Acute and subacute hepatic failure without coma; J18.9 Pneumonia, unspecified organism; E87.1 Hypo-osmolality and hyponatremia; I85.10 Secondary esophageal varices without bleeding; K76.6 Portal hypertension; Z99.11 Dependence on respirator [ventilator] status; G40.901 Epilepsy, unspecified, not intractable, with status epilepticus; E83.51 Hypocalcemia; K74.60 Unspecified cirrhosis of liver; D53.9 Nutritional anemia, unspecified; D69.6 Thrombocytopenia, unspecified; E11.65 Type 2 diabetes mellitus with hyperglycemia; E87.5 Hyperkalemia; I10 Essential (primary) hypertension; K75.81 Nonalcoholic steatohepatitis (NASH); M06.9 Rheumatoid arthritis, unspecified; M32.9 Systemic lupus erythematosus, unspecified; M81.0 Age-related osteoporosis without current pathological fracture; Z51.5 Encounter for palliative care; Z66 Do not resuscitate; Z82.49 Family history of ischemic heart disease and other diseases of the circulatory system; Z83.3 Family history of diabetes mellitus; Z86.73 Personal history of transient ischemic attack (TIA), and cerebral infarction without residual deficits; Z90.710 Acquired absence of both cervix and uterus; I72.2 Aneurysm of renal artery
CPT/HCPCS: 95812; G0378; J1165; J1953; J2250; J2270; J2560; J2704; J1630; J2060; J7050